=== PATIENT | female | born 1955 | race Caucasian/White ===

== ENCOUNTER → 2018-02-19 10:50 | Outpatient (CLI) | payer SELFPAY ==
[2011-01-17 06:35] VITALS: BMI 20.6
[2018-02-19 12:38] LABS: CREATININE - SERUM 0.9 mg/dL (0.6-1.3); VANCOMYCIN - TROUGH 10.8 ug/mL (10.0-20.0)
== END | disposition home or self-care (01) ==
LOC: D.LABREF 10:50
PROVIDERS: Orthopaedic Surgery
DX: M00.861 Arthritis due to other bacteria, right knee (principal)

== ENCOUNTER → 2018-02-25 14:23 | Outpatient (CLI) | payer OTHER ==
[2011-01-17 06:35] VITALS: BMI 20.6
[2018-02-25 16:54] LABS: CREATININE - SERUM 0.8 mg/dL (0.6-1.3); VANCOMYCIN - TROUGH 9.1 ug/mL (10.0-20.0)
== END | disposition home or self-care (01) ==
LOC: D.LABREF 14:23
PROVIDERS: Orthopaedic Surgery
DX: T84.53XA Infection and inflammatory reaction due to internal right knee prosthesis, initial encounter (principal)